=== PATIENT | female | born 1980 | race Hispanic/Latino ===

== ENCOUNTER 2016-10-26 03:07 | Emergency (ER) | payer OTHER ==
[2016-10-26 03:18] VITALS: BP 131/62; RESP 18; TEMP 98.7; O2SAT 100
[2016-10-26] MEDS ORDERED: Sodium Chloride 0.9% 1,000 ML IV STA (03:36)
[2016-10-26 03:58] LABS: BASO % 0.4 % (0.0-2.0); EOS # 0.1 K/uL (0.0-0.7); EOS % 0.7 % (0.0-4.0); HEMOGLOBIN 11.8 g/dL (12.0-16.0); LYMPH # 1.4 K/uL (1.0-4.3); MEAN CELL VOLUME 89.5 fl (81.0-99.0); MEAN CORPUSCULAR HEMOGLOBIN 30.4 pg (27.0-31.0); MEAN PLATELET VOLUME 9.4 fl (7.2-11.7); MONO # 0.5 K/uL (0.0-0.8); MONO % 5.8 % (0.0-10.0); NEUT # 5.9 K/uL (1.8-7.0); NEUT % 75.1 % (50.0-75.0); NRBC % 0.1 % (0.0-0.0); RBC 3.87 Mil/uL (3.80-5.20); RED CELL DISTRIBUTION WIDTH 12.6 % (11.5-14.5); WHITE BLOOD COUNT 7.9 K/uL (4.8-10.8)
[2016-10-26 04:11] LABS: BLOOD UREA NITROGEN 9 mg/dl (7-17); CALCIUM 9.5 mg/dL (8.4-10.2); GFR AFRICAN-AMERICAN > 60; GFR NON-AFRICAN AMERICAN > 60
--- NOTE | 2016-10-26 04:36 | ED PDOC ---
HPI: Psych/Substance Abuse Time Seen by Provider: 10/26/16 03:17 Chief Complaint (Nursing): Chest Pain Chief Complaint (Provider): Substance Abuse History Per: Patient History/Exam Limitations: no limitations Onset/Duration Of Symptoms: Hrs (x17 hours) Current Symptoms Are (Timing): Still Present Suicide/Self Injury Attempted (Context): None Modifying Factor(s): Marijuana Associated Symptoms: Anxiety. denies: Suicidal Thoughts, Suicidal Plan Additional Complaint(s): 36 year old female presents to ED with complaints of anxiety x17 hours and has no past medical history. Patient states she is currently under a lot of stress secondary to from her . Notes that a coworker gave her a marijuana gummy and that she has never taken drugs before. Patient states that she has been feeling anxious all day and has a feeling of impending doom. (+) chest pain, (-) suicidal/homicidal ideation. Confirms that she usually does not suffer from panic attacks and has no family history of cardiac disease. PCP: [facility] Past Medical History Reviewed: Historical Data, Nursing Documentation, Vital Signs Vital Signs: Last Vital Signs Temp 98.7 F 10/26/16 03:16 Pulse 81 10/26/16 03:16 Resp 18 10/26/16 03:16 BP 131/62 10/26/16 03:16 Pulse Ox 100 10/26/16 03:16 - Medical History PMH: No Chronic Diseases - Surgical History Surgical History: No Surg Hx - Family History Family History: Denies: CAD - Social History Drugs: Denies (First time taking cannabis-containing product) - Allergies Allergies/Adverse Reactions: Allergies Allergy/AdvReac Type Severity Reaction Status Date / Time No Known Allergies Allergy Verified 10/26/16 03:18 Review of Systems ROS Statement: Except As Marked, All Systems Reviewed And Found Negative Cardiovascular: Positive for: Chest Pain Psych: Positive for: Anxiety. Negative for: Suicidal ideation, Other ( homicidal ideation) Physical Exam - Reviewed Nursing Documentation Reviewed: Yes Vital Signs Reviewed: Yes - Physical Exam Appears: Positive for: Non-toxic, No Acute Distress (tearful) Head Exam: Positive for: ATRAUMATIC Skin: Positive for: Normal Color, Warm, Dry Eye Exam: Positive for: Normal appearance, EOMI, PERRL ENT: Positive for: Normal ENT Inspection Neck: Positive for: Normal, Painless ROM, Supple Cardiovascular/Chest: Positive for: Regular Rate, Rhythm. Negative for: Murmur Respiratory: Positive for: Normal Breath Sounds. Negative for: Respiratory Distress Gastrointestinal/Abdominal: Positive for: Normal Exam, Soft. Negative for: Tenderness Back: Positive for: Normal Inspection Extremity: Positive for: Normal ROM. Negative for: Deformity Neurologic/Psych: Positive for: Alert, Oriented. Negative for: Motor/Sensory Deficits - Laboratory Results Result Diagrams: 10/26/16 03:38 10/26/16 03:38 - ECG ECG Rhythm: Positive for: Sinus Rhythm Rate: 70 O2 Sat by Pulse Oximetry: 100 (RA) Pulse Ox Interpretation: Normal Medical Decision Making Medical Decision Makin Initial impression: anxiety Initial plan: * EKG * Labs * Trop I * CXR * Ativan 1mg IVP * NS IV * Re-eval 0431 Upon re-evaluation, patient is feeling much better and is medically stable and ready for discharge. Patient's work up returned within normal limits. Patient will follow up with PCP x2 days. Counseling has been provided and patient is in agreement. Return if symptoms persist or acutely worsen. Scribe Attestation: Documented by Betsy Gomez acting as a scribe for Abiel Swain MD. Scribe Attestation: All medical record entries made by the Scribe were at my direction and personally dictated by me. I have reviewed the chart and agree that the record accurately reflects my personal performance of the history, physical exam, medical decision making, and the department course for this patient. I have also personally directed, reviewed, and agree with the discharge instructions and disposition. Disposition - Clinical Impression Clinical Impression: Anxiety - Disposition Disposition: Routine/Home Disposition Time: 04:31 Condition: STABLE Instructions: Anxiety (ED), Stress (ED)
[2016-10-26 04:40] VITALS: PULSE 70
--- NOTE | 2016-10-26 07:57 | CARD ---
APPROVED REPORT EKG Measurement Heart [id number] <Conclusion> Normal sinus rhythm Septal infarct, age undetermined Please check V2 lead placement. Abnormal ECG
--- NOTE | 2016-10-26 10:10 | RAD ---
HISTORY: Chest pain COMPARISON: No prior. TECHNIQUE: Chest PA and lateral FINDINGS: LUNGS: The lungs are well inflated and clear. PLEURA: No significant pleural effusion identified. No pneumothorax apparent. CARDIOVASCULAR: Normal. OSSEOUS STRUCTURES: No significant abnormalities. VISUALIZED UPPER ABDOMEN: Normal. OTHER FINDINGS: None. IMPRESSION: No active pulmonary disease.
== END 2016-10-26 05:30 | disposition home or self-care (01) ==
LOC: H.ER 03:07
DX: F41.9 Anxiety disorder, unspecified (principal)

== ENCOUNTER 2017-01-02 03:56 | Emergency (ER) | payer OTHER ==
--- NOTE | 2017-01-02 06:21 | ED PDOC ---
HPI: Chest Pain Time Seen by Provider: 01/02/17 06:17 Chief Complaint (Nursing): Chest Pain Chief Complaint (Provider): Chest Tightness History Per: Patient History/Exam Limitations: no limitations Onset/Duration Of Symptoms: Hrs Current Symptoms Are (Timing): Still Present Quality: Tightness Exacerbating Factors: Deep Breathing Additional Complaint(s): Saba Mendoza is a 36 year old female who presents to the ED for evaluation of chest tightness and difficulty taking deep breaths. She reports that she was at a work dinner earlier tonight and when she got home she felt restless and was unable to sleep. She states that she feels similar to how she felt 3 months ago when she had anxiety attack. She denies drug use. She did not take any anxiety medications prior to arrival. Past Medical History Reviewed: Historical Data, Nursing Documentation, Vital Signs Vital Signs: Last Vital Signs Temp 97.9 F 01/02/17 04:45 Pulse 79 01/02/17 04:45 Resp 16 01/02/17 04:45 BP 125/80 01/02/17 04:45 Pulse Ox 100 01/02/17 04:45 - Family History Family History: Denies: CAD - Allergies Allergies/Adverse Reactions: Allergies Allergy/AdvReac Type Severity Reaction Status Date / Time No Known Allergies Allergy Verified 10/26/16 03:18 Review of Systems Cardiovascular: Positive for: Chest Pain Respiratory: Positive for: Shortness of Breath Psych: Positive for: Anxiety Physical Exam - Physical Exam Appears: Positive for: Non-toxic, No Acute Distress Head Exam: Positive for: ATRAUMATIC, NORMAL INSPECTION, NORMOCEPHALIC Skin: Positive for: Normal Color, Warm, Dry Eye Exam: Positive for: Normal appearance, EOMI, PERRL Neck: Positive for: Normal, Painless ROM, Supple Cardiovascular/Chest: Positive for: Regular Rate, Rhythm. Negative for: Murmur Gastrointestinal/Abdominal: Positive for: Normal Exam, Soft. Negative for: Tenderness Back: Positive for: Normal Inspection. Negative for: L CVA Tenderness, R CVA Tenderness, Other (midline tenderness) Extremity: Positive for: Normal ROM. Negative for: Pedal Edema, Deformity Neurologic/Psych: Positive for: Alert, Oriented, Other (Anxious appearing). Negative for: Motor/Sensory Deficits - Laboratory Results Result Diagrams: 01/02/17 04:28 Medical Decision Making Medical Decision Making: Impression: Anxiety Plan: BMP Troponin I CBC with Differential 620: PT. feeling better, no longer anxious, will d/c home. encouraged f/u w/ psychiatrist. - Scribe Attestation: Documented by Anosn Vasques, acting as a scribe for Abiel Swain MD. Provider Scribe Attestation: All medical record entries made by the Scribe were at my direction and personally dictated by me. I have reviewed the chart and agree that the record accurately reflects my personal performance of the history, physical exam, medical decision making, and the department course for this patient. I have also personally directed, reviewed, and agree with the discharge instructions and disposition. Disposition - Clinical Impression Clinical Impression: Anxiety - Disposition Referrals: [facility] [Outside] Natalia Zuniga MD [Primary Care Provider] - Disposition: Routine/Home Disposition Time: 06:20 Condition: STABLE Instructions: Generalized Anxiety Disorder (ED) Forms: [email or web address] (Martiniquais)
[2017-01-02 06:45] VITALS: BP 125/80; PULSE 79; RESP 16; TEMP 97.9; O2SAT 100
[2017-01-02 07:05] LABS: BLOOD UREA NITROGEN 11 mg/dl (7-17); CARBON DIOXIDE 21 mmol/L (22-30); CHLORIDE 107 mmol/L (98-107); GFR AFRICAN-AMERICAN > 60; GLUCOSE,RANDOM 122 mg/dL (65-105); SODIUM 140 mmol/l (132-148)
[2017-01-02 07:06] LABS: CALCIUM 9.2 mg/dL (8.4-10.2)
[2017-01-02 07:08] LABS: WHITE BLOOD COUNT 5.9 K/uL (4.8-10.8)
[2017-01-02 07:10] LABS: BASO % 0.6 % (0.0-2.0); EOS % 0.8 % (0.0-4.0); HEMATOCRIT 35.4 % (34.0-47.0); LYMPH % 30.5 % (20.0-40.0); MEAN CORPUSCULAR HEMOGLOBIN 30.1 pg (27.0-31.0); MEAN CORPUSCULAR HGB CONC 33.8 g/dL (33.0-37.0); NEUT % 62.1 % (50.0-75.0); RED CELL DISTRIBUTION WIDTH 12.5 % (11.5-14.5)
[2017-01-02 07:11] LABS: LYMPH # 1.8 K/uL (1.0-4.3); MONO # 0.4 K/uL (0.0-0.8); NEUT # 3.7 K/uL (1.8-7.0); NRBC % 0.1 % (0.0-0.0)
== END 2017-01-02 06:44 | disposition home or self-care (01) ==
LOC: H.ER 03:56
DX: F41.9 Anxiety disorder, unspecified (principal)